=== PATIENT | female | born 1985 | race Caucasian/White ===

== ENCOUNTER → 2020-01-24 08:03 | Outpatient (CLI) | payer OTHER, SELFPAY ==
--- NOTE | ~2020-01-24 | MMUS_ITS ---
EXAMINATION: MM diagnostic galindo BI w benjie, US breast RT limited HISTORY: Fibrocystic change of the right breast and palpable lump in the upper outer quadrant of the right breast TECHNIQUE: Craniocaudal, mediolateral, and mediolateral oblique 3-D tomosynthesis images of the blue ts were performed and synthetic 2-D images were generated. CAD analysis was submitted and interpreted . High resolution limited right breast ultrasound was performed. COMPARISON: None, baseline BREAST PARENCHYMAL COMPOSITION: The breasts are extremely dense, which lowers the sensitivity of mamm ography. FINDINGS: MAMMOGRAPHIC FINDINGS: Right breast: No definite mammographic correlate is identified for the reported palpable abnormality of the breast. There is subtle architectural distortion in the posterior third of the central, slight ly upper breast best appreciated 8 cm from the nipple on the craniocaudal view (tomosynthesis image 3 ). Left breast: There is no evidence of suspicious mass, calcification, or architectural distortion to suggest malignancy. ULTRASOUND: There is no evidence of focal abnormal solid or cystic lesion in the vicinity of the reported palpabl e abnormality of concern or the right breast mammographic finding. IMPRESSION: 1. Right breast architectural distortion seen on tomosynthesis images only. 2. Tomosynthesis guided biopsy is recommended. BI-RADS category 4, suspicious findings. Reviewed, dictated and finalized at location A. ACT CLERK IMPRESSION: 1. Right breast architectural distortion seen on tomosynthesis images only. 2. Tomosynthesis guided biopsy is recommended. BI-RADS category 4, suspicious findings.
== END ==
PROVIDERS: Visit Provider Advanced Practice Midwife
DX: N60.11 Diffuse cystic mastopathy of right breast (principal); N63.11 Unspecified lump in the right breast, upper outer quadrant
CPT/HCPCS: 76642; 77062; 77066; G0279

== ENCOUNTER 2020-12-26 09:03 | Emergency (ER) | payer SELFPAY ==
--- NOTE | ~2020-12-26 | XR_ITS ---
XR ribs LT 2V w CXR 2V DATE: 12/26/2020 10:04 INDICATION: Left posterior rib pain. [place] a pop after showering. TECHNIQUE: PA and lateral chest. 3 views of the left ribs. COMPARISON: 12/10/2017 two-view chest FINDINGS: There is surgical fusion at T10-L1. There is levoscoliosis of the lower thoracic and upper lumbar spine. Normal heart size. No hilar or mediastinal enlargement. No pulmonary infiltrate or consolidation, ple ural effusion or pulmonary vascular congestion or pneumothorax. No left rib fracture is detected. IMPRESSION: No active cardiopulmonary disease No left rib fracture is detected Reviewed, dictated and finalized at location B.
[2020-12-26 09:10] VITALS: BP 121/85; PULSE 93; RESP 16; TEMP 36.9; O2SAT 100
--- NOTE | 2020-12-26 09:56 | ED.BACK ---
HPI - Back Pain/Injury General Chief Complaint: Back Pain/Injury Stated Complaint: left flank pain Time Seen by Provider: 12/26/20 09:43 Source: patient Mode of arrival: ambulatory Limitations: no limitations History of Present Illness HPI Narrative: This is a 35 year old female that presents to the ER for left sided mid back pain present since yesterday. No known injury or trauma. The pain is constant. Worse with movement. She has taken Aleve with little relief. Denies fever, chest pain, shortness of breath, abdominal pain, vomiting, dysuria or hematuria. Related Data Allergies Allergy/AdvReac Type Severity Reaction Status Date / Time diazepam [From Valium] AdvReac Itching Verified 12/26/20 10:15 Review of Systems Review of Systems: CONSTITUTIONAL: Denies fever CARDIOVASCULAR: Denies chest pain RESPIRATORY: Denies cough or dyspnea. GASTROINTESTINAL: Denies abdominal pain, nausea, vomiting GENITOURINARY: Denies dysuria or hematuria. SKIN: Denies rash MUSCULOSKELETAL: Reports back pain, joint pain, and myalgia. All systems reviewed & are unremarkable except as noted in HPI and below PMFSH Past Medical History Medical History (Updated 12/26/20 @ 11:35 by Leyla Omalley PA-C) No active medical problems Social History Social History (Updated 12/26/20 @ 09:59 by Leyla Omalley PA-C) Substance use: never Exam Narrative: GENERAL: Well-appearing, well-nourished, and in no acute distress. HEAD: Normocephalic, atraumatic. EYES: EOMI. CHEST: Clear to auscultation. No respiratory distress. No wheezes rales or rhonchi HEART: Regular rate and rhythm. No murmur heard. Normal peripheral pulses. ABDOMEN: Soft, nontender, nondistended, normal active bowel sounds. No CVA tenderness BACK: No midline spinal tenderness EXTREMITIES: Normal range of motion. No edema. SKIN: Warm, dry, no rash. NEURO: No focal deficits. Alert and oriented x3. PSYCH: Normal mood and affect Course Vital Signs Vital signs: Vital Signs Temperature 98.4 F 12/26/20 09:10 Pulse Rate 93 12/26/20 09:10 Respiratory Rate 16 12/26/20 09:10 Blood Pressure 121/85 12/26/20 09:10 Pulse Oximetry 100 12/26/20 09:10 Temperature 98.4 F 12/26/20 09:10 Pulse Rate 93 12/26/20 09:10 Respiratory Rate 16 12/26/20 09:10 Blood Pressure 121/85 12/26/20 09:10 Pulse Oximetry 100 12/26/20 09:10 MDM - Back Pain/Injury MDM Narrative Medical decision making narrative: Patient presents to the emergency department for left-sided mid back pain noted since yesterday. No injury or trauma. Patient is neurologically intact. Denies any abdominal pain or urinary symptoms. PERC criteria negative. Her vitals are normal. CBC and metabolic panel without concerning findings. UA with 4-6 white blood cells, but also moderate squamous epithelial cells. Patient denies any urinary symptoms. This will be sent for culture. Bedside test is negative. Left-sided rib/chest x-ray without acute findings. Patient was updated on case findings. Pain does seem to be musculoskeletal in nature. Instructed to rest, ice and take [id number] pain medication as needed. Will be prescribed muscle relaxer as needed for pain. She is to follow-up with primary care doctor. She was given warnings to return to the ER Lab Data Attestation: I reviewed the patient's lab results. Result diagrams: 12/26/20 09:56 12/26/20 09:56 Labs: Lab Results 12/26/20 12/26/20 12/26/20 Range/Units 09:41 09:56 09:56 WBC 7.9 (4.5-10.0) K/mm3 RBC 4.67 (4.2-5.4) M/mm3 Hgb 13.1 (12.0-15.0) g/dL Hct 39.8 (37.0-47.0) % MCV 85.2 (80-100) fl MCH 28.1 (26-34) pg MCHC 32.9 (32-36) g/dl RDW 12.1 (11.5-14.5) % Plt Count 386 H (150-375) k/mm3 MPV 9.6 (7.4-10.4) fl Immature Gran % (Auto) 0.3 (0-0.5) % Neut % (Auto) 66.4 (45.5-73.1) % Lymph % (Auto) 24.0 (18.3-44.2) % [place] % (Auto)
[2020-12-26 10:00] LABS: Add Urine Microscopic? YES; Appearance Urine Clear (Clear); Bacteria Urine Trace /hpf; Bilirubin Urine Negative (Negative); Blood Urine Negative (Negative); Color Urine Yellow (Yellow); Glucose Urine UA Negative (Negative); Ketones Urine Negative (Negative); Leukocyte Esterase Ur 2+ LEU/UL (Negative); Mucus Urine Rare /lpf; Nitrate Urine Negative (Negative); Protein Urine Negative (Negative); RBC Urine 0-2 /hpf (0-2); Specific Grav Ur 1.019 (1.001-1.035); Squamous Epithelial Cell Urine Moderate /hpf (Few); Urobilinogen Urine Negative mg/dL (<2.0)
[2020-12-26 10:05] LABS: Basophils Absolute Auto 0.1 K/mm3 (0.0-0.1); Eosinophils Absolute Auto 0.1 K/mm3 (0-0.3); Eosinophils Percent Auto 0.8 % (0-4.4); Hematocrit 39.8 % (37.0-47.0); Hemoglobin 13.1 g/dL (12.0-15.0); Immature Granulocyte Absolute 0.02 K/mm3 (0.00-0.031); Immature Granulocyte Percent A 0.3 % (0-0.5); Mean Corpuscular HGB Conc 32.9 g/dl (32-36); Mean Corpuscular Hemoglobin 28.1 pg (26-34); Mean Corpuscular Volume 85.2 fl (80-100); Mean Platelet Volume 9.6 fl (7.4-10.4); Monocytes Absolute Auto 0.6 K/mm3 (0.1-0.6); Monocytes Percent Auto 7.5 % (2.6-8.5); Neutrophils Absolute Auto 5.3 K/mm3 (1.3-6.7); Neutrophils Percent Auto 66.4 % (45.5-73.1); Platelet Count Result 386 k/mm3 (150-375); Red Blood Count 4.67 M/mm3 (4.2-5.4); Red Cell Distribution Width 12.1 % (11.5-14.5); White Blood Count 7.9 K/mm3 (4.5-10.0)
[2020-12-26] MEDS: ACETAMINOPHEN 500 MG TABLET 1000 MG PO (10:14)
[2020-12-26 10:20] LABS: Anion Gap 7 mmol/L (8-16); Blood Urea Nitrogen 9 mg/dL (7-17); Calcium 9.6 mg/dL (8.4-10.2); Carbon Dioxide 27 mmol/L (22-30); Chloride 105 mmol/L (98-107); Estimated CRCL calculation 95 ml/min; Estimated Glomerular Filt Rate > 60; Glucose 120 mg/dL (65-110); Potassium 4.1 mmol/L (3.4-5.0); Sodium 139 mmol/L (137-145)
[2020-12-26] MEDS: CYCLOBENZAPRINE HCL 10 MG TABLET PO (10:57)
[2020-12-26 12:05] VITALS: BP 118/78; PULSE 90; RESP 18; O2SAT 100
== END 2020-12-26 12:05 | disposition home or self-care (01) ==
PROVIDERS: Physician Assistant; Emergency Provider Emergency Medicine
DX: M54.6 Pain in thoracic spine (principal)
CPT/HCPCS: 36415; 71046; 71100; 80048; 81001; 81025; 85025; 87086; 87088; 99283; A9270

== ENCOUNTER 2024-12-13 17:52 | Emergency (ER) | payer OTHER, SELFPAY | END 2024-12-13 18:10 | disposition left against medical advice (07) | LOC: ANHED 18:09 | DX: Z20.822 Contact with and (suspected) exposure to COVID-19 (principal) | CPT/HCPCS: 99199 ==